=== PATIENT | female | born 1935 | race Caucasian/White ===

== ENCOUNTER 2021-08-17 18:53 | Inpatient (IN) | payer MEDICARE, MEDICAID ==
[~2021-08-17] VITALS: Ht 157.5 cm; Wt 66.0 kg
[~2021-08-17 18:53] MED LIST: AMLO10TA80 MT; THYR32.510 MT
[2021-08-17] MEDS ORDERED: SODIUM CHLORIDE 0.9% 1000ML BAG (SEPSIS BOLUS) IV ONE (19:15)
[2021-08-17 19:34] LABS: HEMOGLOBIN. 13.9 g/dL (12.0-16.0); MEAN CORPUSCULAR HEMOGLOBIN 31.5 pg (28.0-32.0); MEAN CORPUSCULAR VOLUME 90.8 fL (81.0-99.0); MEAN PLATELET VOLUME 8.6 fl (7.4-10.4); PLATELET 243 x1000/uL (130-400); RED CELL DISTRIBUTION WIDTH 13.2 % (11.6-14.6)
[2021-08-17 19:40] LABS: CHLORIDE 85 mEq/L (98-107)
[2021-08-17] MEDS ORDERED: CEFTRIAXONE 1 G PREMIX 50 ML IV ONE (20:00)
[2021-08-17 20:02] LABS: CLARITY URINE CLEAR (CLEAR); COLOR URINE DARK YELLOW (YELLOW); KETONES URINE 1+ (NEGATIVE); LEUKOCYTE ESTERASE URINE TRACE (NEGATIVE); NITRITE URINE NEGATIVE (NEGATIVE); OCCULT BLOOD URINE TRACE (NEGATIVE); PH URINE 5.5 (4.5-8.0); PROTEIN URINE 3+ (NEGATIVE); SPECIFIC GRAVITY URINE 1.023 (1.005-1.030)
[2021-08-17 20:08] LABS: INR 1.3; PROTHROMBIN TIME 13.3 sec (9.6-11.0)
[2021-08-17] MEDS ORDERED: AZITHROMYCIN 500 MG in DEXT 5% WATER 250 ML IV STA (20:10)
[2021-08-17] MEDS ORDERED: FUROSEMIDE 20MG/2ML VIAL IVP ONE (20:45)
[2021-08-17 21:02] LABS: PLATELET ESTIMATE NORMAL
[2021-08-17 21:38] LABS: BG BASE EXCESS -1.6 mmol/L (-2.0-2.0); BG CARBOXYHEMOGLOBIN 0.6 % (0.5-1.5); BG DEOXYHEMOGLOBIN 5.2 % (0.0-5.0); BG FRACTION INSPIRED OXYGEN 36; BG HCO3 ACT 25.1 mmol/L (22.0-26.0); BG METHEMOGLOBIN 0.2 % (0.0-1.5); BG OXYGEN SATURATION 94.8 % (92.0-98.5); BG PCO2 50.5 mmHg (35.0-45.0); BG PH 7.315 (7.350-7.450); BG PO2 80.1 mmHg (75.0-100.0); BG SAMPLE SITE RIGHT RADIAL; BG TOTAL HEMOGLOBIN 13.8 g/dL (12.0-18.0); BG VENT MODE NASAL CANNULA
[2021-08-17 23:00] VITALS: BP 158/116
[2021-08-18] VITALS (18 sets, daily range): BP systolic 137–169; BP diastolic 54–95
[2021-08-18] MEDS ORDERED: METOPROLOL TARTRATE 50MG TABLET PO NR (00:18)
[2021-08-18] MEDS ORDERED: DIGOXIN 500MCG/2ML AMP IV NR (00:18)
[2021-08-18] MEDS ORDERED: DEXTROSE 50% WATER 50ML SYRINGE IV PRN ×2 (00:30→00:45)
[2021-08-18] MEDS ORDERED: CEFTRIAXONE 1 G PREMIX 50 ML IV SCH (00:30)
[2021-08-18] MEDS: ENOXAPARIN 60MG/0.6ML SYR SUBCUT SCH ×2 (04:05→12:49)
[2021-08-18 06:12] LABS: HEMATOCRIT. 37.5 % (36.0-48.0); HEMOGLOBIN. 12.8 g/dL (12.0-16.0); MEAN CORPUSCULAR HEMOGLOBIN 30.8 pg (28.0-32.0); PLATELET 223 x1000/uL (130-400); RED BLOOD CELL COUNT 4.17 mill/uL (4.2-5.4); RED CELL DISTRIBUTION WIDTH 13.4 % (11.6-14.6)
[2021-08-18 06:15] LABS: CHLORIDE 87 mEq/L (98-107); T4 FREE 1.88 ng/dL (0.76-1.46)
[2021-08-18 06:30] LABS: HDL CHOLESTEROL 21 mg/dL (40-59); LDL CHOLESTEROL 79 mg/dL (5-100)
[2021-08-18] MEDS: BLOOD SUGAR DIAGNOSTIC STRIP TEST SCH ×4 (07:30→20:21)
[2021-08-18] MEDS: INSULIN LISPRO 100 UNITS/ML SUBCUT SCH ×4 (08:00→20:34)
[2021-08-18] MEDS ORDERED: METOPROLOL TARTRATE 50MG TABLET PO SCH (09:00)
[2021-08-18] MEDS: PANTOPRAZOLE 40MG DR TABLET PO SCH (09:05)
[2021-08-18] MEDS ORDERED: POTASSIUM CHLORIDE 20MEQ/PACKET PO NR ×2 (09:30→15:30)
[2021-08-18] MEDS: METHIMAZOLE 5MG TABLET PO SCH ×2 (12:46→20:38)
[2021-08-18] MEDS: METHYLPREDNISOLONE SOD SUCC 40 MG/ML VIAL IV SCH ×2 (14:36→20:33)
[2021-08-18] MEDS: ASPIRIN 81MG EC TABLET PO SCH (14:37)
[2021-08-18] MEDS: CLONIDINE 0.1MG TABLET PO PRN (14:52)
[2021-08-18] MEDS ORDERED: FUROSEMIDE 100MG/10ML VIAL IVP NR (15:00)
[2021-08-18] MEDS: DILTIAZEM HCL 30MG TABLET PO SCH ×2 (17:49→23:30)
[2021-08-18] MEDS: CEFTRIAXONE 1,000 MG in DEXTROSE 5% WATER 50 ML IV SCH (19:43)
[2021-08-18] MEDS: IPRATROPIUM/ALBUTEROL 0.5-3(2.5)MG/3ML NEB HHN SCH (20:26)
[2021-08-18] MEDS: ATORVASTATIN CALCIUM 20MG TABLET PO SCH (20:34)
[2021-08-18] MEDS ORDERED: AZITHROMYCIN 500 MG in DEXT 5% WATER 250 ML IV SCH (21:00)
[2021-08-18] MEDS ORDERED: METOPROLOL TARTRATE 25MG TABLET PO SCH (21:00)
[2021-08-18 23:13] LABS: PLATELET ESTIMATE NORMAL
[2021-08-18] MEDS: LORAZEPAM 0.5MG TABLET PO PRN (23:30)
[2021-08-19] VITALS (11 sets, daily range): BP systolic 136–185; BP diastolic 52–96
[2021-08-19] MEDS: IPRATROPIUM/ALBUTEROL 0.5-3(2.5)MG/3ML NEB HHN SCH ×6 (00:46→20:36)
[2021-08-19] MEDS: ENOXAPARIN 60MG/0.6ML SYR SUBCUT SCH ×2 (00:48→13:10)
[2021-08-19] MEDS: METHYLPREDNISOLONE SOD SUCC 40 MG/ML VIAL IV SCH ×3 (05:14→20:39)
[2021-08-19] MEDS: DILTIAZEM HCL 30MG TABLET PO SCH ×3 (05:14→18:08)
[2021-08-19] MEDS: METHIMAZOLE 5MG TABLET PO SCH ×3 (05:15→20:40)
[2021-08-19 06:48] LABS: HEMATOCRIT. 38.4 % (36.0-48.0); HEMOGLOBIN. 12.9 g/dL (12.0-16.0); MEAN CORPUSCULAR VOLUME 91.9 fL (81.0-99.0); MEAN PLATELET VOLUME 8.8 fl (7.4-10.4); PLATELET 235 x1000/uL (130-400); RED BLOOD CELL COUNT 4.17 mill/uL (4.2-5.4); RED CELL DISTRIBUTION WIDTH 13.3 % (11.6-14.6)
[2021-08-19 07:06] LABS: CHLORIDE 91 mEq/L (98-107)
[2021-08-19] MEDS: BLOOD SUGAR DIAGNOSTIC STRIP TEST SCH ×4 (08:04→20:39)
[2021-08-19] MEDS: PANTOPRAZOLE 40MG DR TABLET PO SCH (08:12)
[2021-08-19] MEDS: ASPIRIN 81MG EC TABLET PO SCH (08:12)
[2021-08-19] MEDS: INSULIN LISPRO 100 UNITS/ML SUBCUT SCH ×4 (08:13→20:55)
[2021-08-19] MEDS ORDERED: POTASSIUM CHLORIDE 20MEQ/PACKET PO NR (09:56)
[2021-08-19] MEDS ORDERED: FUROSEMIDE 40MG/4ML VIAL IVP NR (10:00)
[2021-08-19 14:23] LABS: PLATELET ESTIMATE NORMAL
[2021-08-19] MEDS: LORAZEPAM 0.5MG TABLET PO PRN (20:39)
[2021-08-19] MEDS: AZITHROMYCIN 500 MG TABLET PO SCH (20:39)
[2021-08-19] MEDS: CLONIDINE 0.1MG TABLET PO PRN (20:40)
[2021-08-19] MEDS: CEFTRIAXONE 1,000 MG in DEXTROSE 5% WATER 50 ML IV SCH (20:41)
[2021-08-19] MEDS: ATORVASTATIN CALCIUM 20MG TABLET PO SCH (20:41)
[2021-08-20] VITALS (13 sets, daily range): BP systolic 105–183; BP diastolic 52–88
[2021-08-20] MEDS: ENOXAPARIN 60MG/0.6ML SYR SUBCUT SCH ×2 (00:02→12:36)
[2021-08-20] MEDS: DILTIAZEM HCL 30MG TABLET PO SCH ×4 (00:03→21:30)
[2021-08-20] MEDS: IPRATROPIUM/ALBUTEROL 0.5-3(2.5)MG/3ML NEB HHN SCH ×6 (00:39→20:00)
[2021-08-20] MEDS: METHYLPREDNISOLONE SOD SUCC 40 MG/ML VIAL IV SCH ×3 (05:25→21:29)
[2021-08-20] MEDS: CLONIDINE 0.1MG TABLET PO PRN (05:26)
[2021-08-20] MEDS: METHIMAZOLE 5MG TABLET PO SCH ×3 (05:29→21:30)
[2021-08-20] MEDS: BLOOD SUGAR DIAGNOSTIC STRIP TEST SCH ×4 (07:56→20:28)
[2021-08-20] MEDS: LOSARTAN POTASSIUM 25 MG TABLET PO SCH (08:21)
[2021-08-20] MEDS: PANTOPRAZOLE 40MG DR TABLET PO SCH (08:21)
[2021-08-20] MEDS: INSULIN LISPRO 100 UNITS/ML SUBCUT SCH ×4 (08:24→20:36)
[2021-08-20] MEDS: ASPIRIN 81MG EC TABLET PO SCH (08:26)
[2021-08-20] MEDS: LORAZEPAM 0.5MG TABLET PO PRN ×2 (12:37→21:30)
[2021-08-20 13:24] LABS: HEMATOCRIT 34.6 % (36.0-48.0); HEMOGLOBIN 11.7 g/dL (12.0-16.0); MEAN CORPUSCULAR HEMOGLOBIN 30.7 pg (28.0-32.0); PLATELET 294 x1000/uL (130-400); RED CELL DISTRIBUTION WIDTH 13.7 % (11.6-14.6)
[2021-08-20 13:35] LABS: CHLORIDE 92 mEq/L (98-107)
[2021-08-20] MEDS ORDERED: FUROSEMIDE 40MG/4ML VIAL IVP NR (14:15)
[2021-08-20] MEDS ORDERED: AMIODARONE HCL 200 MG TABLET PO SCH (14:30)
[2021-08-20 16:33] LABS: HEMATOCRIT. 34.5 % (36.0-48.0); HEMOGLOBIN. 11.6 g/dL (12.0-16.0); MEAN CORPUSCULAR HEMOGLOBIN 30.3 pg (28.0-32.0); MEAN CORPUSCULAR VOLUME 90.5 fL (81.0-99.0); MEAN PLATELET VOLUME 8.7 fl (7.4-10.4); PLATELET 293 x1000/uL (130-400); RED BLOOD CELL COUNT 3.81 mill/uL (4.2-5.4); RED CELL DISTRIBUTION WIDTH 13.9 % (11.6-14.6)
[2021-08-20 16:50] LABS: CHLORIDE 92 mEq/L (98-107)
[2021-08-20 17:41] LABS: PLATELET ESTIMATE NORMAL
[2021-08-20] MEDS: AZITHROMYCIN 500 MG TABLET PO SCH (20:13)
[2021-08-20] MEDS: ATORVASTATIN CALCIUM 20MG TABLET PO SCH (20:13)
[2021-08-20] MEDS: CEFTRIAXONE 1,000 MG in DEXTROSE 5% WATER 50 ML IV SCH (20:13)
[2021-08-20] MEDS ORDERED: METOPROLOL TARTRATE 25MG TABLET PO SCH (21:00)
[2021-08-21] VITALS (8 sets, daily range): BP systolic 144–168; BP diastolic 65–82
[2021-08-21] MEDS: IPRATROPIUM/ALBUTEROL 0.5-3(2.5)MG/3ML NEB HHN SCH ×5 (01:00→14:03)
[2021-08-21] MEDS: ENOXAPARIN 60MG/0.6ML SYR SUBCUT SCH ×2 (02:38→13:31)
[2021-08-21] MEDS: METHYLPREDNISOLONE SOD SUCC 40 MG/ML VIAL IV SCH ×2 (05:36→13:31)
[2021-08-21] MEDS: METHIMAZOLE 5MG TABLET PO SCH ×2 (05:37→13:30)
[2021-08-21] MEDS: DILTIAZEM HCL 30MG TABLET PO SCH ×2 (05:40→13:31)
[2021-08-21] MEDS ORDERED: FAMOTIDINE 20MG TABLET PO SCH (07:30)
[2021-08-21] MEDS: BLOOD SUGAR DIAGNOSTIC STRIP TEST SCH ×2 (07:30→13:01)
[2021-08-21] MEDS: INSULIN LISPRO 100 UNITS/ML SUBCUT SCH ×2 (08:00→13:34)
[2021-08-21] MEDS: LOSARTAN POTASSIUM 25 MG TABLET PO SCH (09:19)
[2021-08-21] MEDS: ASPIRIN 81MG EC TABLET PO SCH (09:19)
[2021-08-21] MEDS ORDERED: METH-371 MT (14:10)
[2021-08-21] MEDS ORDERED: LEVO500T90 MT (14:10)
[2021-08-21] MEDS ORDERED: DILT120C88 MT (14:10)
[2021-08-21] MEDS ORDERED: APIX5TAB MT (14:10)
[2021-08-21] MEDS ORDERED: ENOXAPARIN 60MG/0.6ML SYR SUBCUT SCH (23:00)
== END 2021-08-21 15:35 | disposition home or self-care (01) | DRG 871 ==
LOC: ER 18:53 → 5EST 21:30 → EDBEDREQTM 21:54 → EDBEDREQ 21:54 → ENRESERV 22:07
PROVIDERS: ADMIT Internal Medicine; ATTEND Internal Medicine
DX: A41.9 Sepsis, unspecified organism (principal); J18.9 Pneumonia, unspecified organism; I50.22 Chronic systolic (congestive) heart failure; E87.1 Hypo-osmolality and hyponatremia; N39.0 Urinary tract infection, site not specified; I48.20 Chronic atrial fibrillation, unspecified; I11.0 Hypertensive heart disease with heart failure; E05.90 Thyrotoxicosis, unspecified without thyrotoxic crisis or storm; J20.9 Acute bronchitis, unspecified; E11.9 Type 2 diabetes mellitus without complications; I25.5 Ischemic cardiomyopathy; I25.10 Atherosclerotic heart disease of native coronary artery without angina pectoris; E03.9 Hypothyroidism, unspecified; F03.90 Unspecified dementia, unspecified severity, without behavioral disturbance, psychotic disturbance, mood disturbance, and anxiety; E87.70 Fluid overload, unspecified; I48.0 Paroxysmal atrial fibrillation; Z20.822 Contact with and (suspected) exposure to COVID-19; Z79.899 Other long term (current) drug therapy; Z95.1 Presence of aortocoronary bypass graft
CPT/HCPCS: 36415; 36600; 71045; 71250; 80048; 80053; 80061; 81003; 82375; 82805; 82962; 83036; 83605; 83735; 83880; 84145; 84439; 84443; 84484; 85025; 85027; 87426; 93005; 93306; 94640; 99291; C9803; J0456; J0696; J1160; J1650; J1815; J1940; J2920; J7030; J7060